=== PATIENT | male | born 1960 | race Caucasian/White ===

== ENCOUNTER → 2016-08-22 | Outpatient (CLI) | payer BC ==
[~2016-08-22] MED LIST: AMOX-355 PO; CATHETER FLUSH 10 ML SYR IV PRN; HYDR-3812 PO; IOHEXOL 350 MG/ML 100 ML (OMNIPAQUE 350) VIAL IV ONE; NS 100 ML (IVPB) BAG IV ONE; PRD20T PO
--- NOTE | 2016-08-22 10:00 | Diagnostic Imaging Report ---
PROCEDURE: CT chest with contrast only. TECHNIQUE: Multiple contiguous axial images were obtained through the chest after administration of intravenous contrast. INDICATION: Lung nodules seen on chest x-ray from 08/17/2016. 75 mL of Omnipaque 350 is administered intravenously. FINDINGS: There is an irregular bilobed nodule in the right upper lobe measuring 2.1 x 1.3 cm in maximum axial dimension and is contiguous with an adjacent superior nodule with the contiguous craniocaudal measurement at 3.4 cm. There is surrounding spiculation. There is background advanced emphysema changes. There are some calcified granulomas in the right middle lobe and in the left lower lobe with no other suspicious nodules or masses. There is a nonspecific 9-mm precarinal lymph node. No significant hilar lymphadenopathy is seen. The mediastinum demonstrates no mass or lymphadenopathy. There is no axillary lymphadenopathy noted. The thoracic aorta is normal in caliber. The heart size is normal. The osseous structures appear grossly unremarkable. Sections of the upper abdomen demonstrate suggestion of anatomic variation in the lower pole of the left kidney. The kidneys are incompletely visualized on this exam. There is no adrenal nodule. IMPRESSION: 1. Irregular right upper lobe lung mass concerning for lung cancer. Evaluation with PET/CT is suggested. 2. Nonspecific 9-mm precarinal lymph node. 3. Advanced emphysema. Simran Cox NP, was called and informed about the findings by Dr. Ashraf at time of dictation. Dictated by: Dictated on workstation # [id number]
== END ==
LOC: RAD 09:09
PROVIDERS: ATTEND Nurse Practitioner Family
DX: R91.8 Other nonspecific abnormal finding of lung field (principal); J43.9 Emphysema, unspecified
CPT/HCPCS: 71260

== ENCOUNTER 2016-08-25 06:22 | Day surgery (SDC) | payer BC ==
[~2016-08-25] VITALS: Ht 167.6 cm; Wt 63.7 kg
--- NOTE | 2016-08-25 06:47 | Progress Note-Pre Operative ---
Pre-Operative Progress Note H&P Reviewed The H&P was reviewed, patient examined and no changes noted. Date H&P Reviewed: Aug 25, 2016 Time H&P Reviewed: 06:40 Pre-Operative Diagnosis: Bilat Chronic Sinusitis with Polyps, Deviated SEptum, Bilat Hyper of INf Tu KATIE STEINER MD Aug 25, 2016 6:46 am
[2016-08-25] MEDS ORDERED: NORMAL SALINE (BAXTER MINI) 50 ML IV ONE (07:02)
[2016-08-25] MEDS ORDERED: HYDROCORTISONE 100 MG/2 ML (Solu-CORTEF) VIAL ONE (07:02)
[2016-08-25] MEDS ORDERED: AMPICILL/SULB 1.5 GM VIAL (UNASYN) ONE (07:02)
[2016-08-25] MEDS ORDERED: HYDROCORTISONE 100 MG/2 ML (Solu-CORTEF) VIAL IV ONE (07:15)
[2016-08-25] MEDS ORDERED: AMPICILLIN/SULBACTAM 1.5 GM/NS 50 ML IVPB IV ONE ×2 (07:15)
[2016-08-25] MEDS: LACTATED RINGERS 1,000 ML IV PRN ×2 (07:24→10:00)
[2016-08-25] MEDS ORDERED: BSS 15 ML ONE (07:42)
[2016-08-25] MEDS ORDERED: PHENYLEPHRINE 0.5% NASAL SPR (NEO-SYNEPHRINE) REG ONE ×2 (07:42→10:40)
[2016-08-25] MEDS ORDERED: LIDOCAINE/EPI 1%-1:100,000 (XYLOCAINE) 20ML ONE ×2 (07:42→10:02)
[2016-08-25] MEDS ORDERED: COCAINE HCL 4% 2 ML SYR ONE (07:42)
[2016-08-25 07:52] VITALS: BP 162/92
[2016-08-25] MEDS ORDERED: SEVOFLURANE (ULTANE) 15 ML INHAL SOLN ONE ×4 (08:41→10:31)
[2016-08-25] MEDS ORDERED: LIDOCAINE PF 2% 10 ML (XYLOCAINE) AMP ONE (08:41)
[2016-08-25] MEDS ORDERED: ONDANSETRON 4 MG/2 ML (SDV) Z0FRAN ONE (08:41)
[2016-08-25] MEDS ORDERED: proPOfol 200 MG/20 ML (DIPRIVAN) VIAL IV ONE (08:41)
[2016-08-25] MEDS ORDERED: ROCURONIUM 50 MG/5 ML (ZEMURON) VIAL IV ONE (08:41)
[2016-08-25] MEDS ORDERED: DEXAMETHASONE PF 10 MG/ML (DECADRON) VIAL ONE (08:41)
[2016-08-25] MEDS ORDERED: LACTATED RINGERS 1,000 ML IV ONE ×2 (08:41→09:55)
[2016-08-25] MEDS ORDERED: MIDAZOLAM 2 MG/2 ML (VERSED) VIAL ONE (08:42)
[2016-08-25] MEDS ORDERED: fentaNYL INJECTION 250 MCG/5 ML AMP ONE (08:42)
[2016-08-25] MEDS ORDERED: ATROPINE INJ 0.4 MG/ML SDV ONE (09:18)
[2016-08-25] MEDS ORDERED: NEOSTIGMINE (BLOXIVERZ ) 1 MG/1ML 10 ML VIAL ONE (10:34)
[2016-08-25] MEDS ORDERED: GLYCOPYRROLATE 0.2 MG/ML (ROBINUL) 2 ML VIAL ONE (10:34)
[2016-08-25] MEDS ORDERED: morphine INJ 10 MG/ML 1ML (SYR OR VIAL) ONE (10:39)
[2016-08-25] MEDS ORDERED: COCAINE HCL 4% 2 ML SYR TOP ONE (10:40)
[2016-08-25] MEDS ORDERED: LIDOCAINE/EPI 1%-1:100,000 (XYLOCAINE) 20ML INJ ONE (10:40)
[2016-08-25] MEDS ORDERED: BSS 15 ML IO ONE (10:40)
[2016-08-25] MEDS ORDERED: D5 1/2 NS W/KCL 20 MEQ/L 1,000 ML IV SCH (10:44)
--- NOTE | 2016-08-25 10:44 | Progress Note-Post Operative ---
Post-Operative Progess Note Pre-Operative Diagnosis BILAT CHRONIC SINUSITIS WITH POLYPS, DEVIATED SEPTUM, BILAT HYPER OF INF TU Post-Operative Diagnosis same Post-Op Procedure Note Date of Procedure: Aug 25, 2016 Name of Procedure: Bilat ESs, Bilat REdu of the inf Turbs Anesthesia Type get Estimated blood loss (mL): 150cc Packing: DNP bilat Specimen(s) collected Bilat Polyps and sinus disease KATIE STEINER MD Aug 25, 2016 10:44 am
[2016-08-25] MEDS ORDERED: predniSONE 20 MG TAB PO ONE (10:45)
[2016-08-25] MEDS ORDERED: PROMETHAZINE INJ 25 MG/ML (PHENERGAN) AMP IVP PRN (10:45)
[2016-08-25] MEDS ORDERED: HYDROcodone/APAP 5 MG/325 MG (LORTAB) TAB PO PRN (10:45)
[2016-08-25] MEDS ORDERED: ACETAMINOPHEN 325 MG TABLET/CAPLET (TYLENOL) PO PRN (10:45)
[2016-08-25] MEDS ORDERED: ONDANSETRON 4 MG/2 ML (SDV) Z0FRAN IVP PRN (11:00)
[2016-08-25] MEDS ORDERED: morphine INJ 10 MG/ML 1ML (SYR OR VIAL) IVP PRN (11:00)
[2016-08-25] MEDS ORDERED: HYDROmorphone (DILAUDID) 2 MG/ML VIAL IVP PRN (11:00)
[2016-08-25] MEDS ORDERED: MEPERIDINE (DEMEROL) INJ 50 MG/ML IVP PRN (11:00)
[2016-08-25 11:40] VITALS: BP 165/91
[2016-08-25 12:10] VITALS: BP 162/91
[2016-08-25] MEDS ORDERED: AMOX-355 PO ×2 (12:39)
[2016-08-25] MEDS ORDERED: HYDR-3812 PO ×2 (12:39)
[2016-08-25] MEDS ORDERED: PRD20T PO ×2 (12:39)
[2016-08-25 12:40] VITALS: BP 159/92
== END 2016-08-25 13:10 | disposition home or self-care (01) ==
LOC: SDC 06:22
PROVIDERS: ATTEND Otolaryngology Otolaryngology/Facial Plastic Surgery
DX: J32.2 Chronic ethmoidal sinusitis (principal); J32.0 Chronic maxillary sinusitis; J32.1 Chronic frontal sinusitis; J32.3 Chronic sphenoidal sinusitis; J33.9 Nasal polyp, unspecified

== ENCOUNTER → 2016-08-29 | Outpatient (CLI) | payer BC ==
[~2016-08-29] MED LIST changes: -CATHETER FLUSH 10 ML SYR IV PRN; -IOHEXOL 350 MG/ML 100 ML (OMNIPAQUE 350) VIAL IV ONE; -NS 100 ML (IVPB) BAG IV ONE
--- OUTSIDE RECORDS SUMMARY | 2016-08-29 08:21 | XMS REPORT | Continuity of Care Document ---
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 Medications Current Home Medications Medication Dose Units Route Directions Days/Qty Instructions Start Date Amoxicillin/Potassium Clav 1 Each 1 Tab Oral Twice A Day 7 Days Prednisone 20 Mg 20 Mg Oral As Directed 12 Take 3 tabs(60mg)daily x2 days , then take 2 tabs(40mg)daily x2 days, then take 1 tab(20mg)daily x2 days, then off. 08/25/16 Hydrocodone/Acetaminophen 1 Each 1-2 Tab Oral Every 4HRS as needed for Pain 40 08/25/16 Social History Social History Problem Response Recorded Date/Time Alcohol Use Denies Use 08/25/2016 8:05am Recreational Drug Use No 08/25/2016 8:05am Recent Foreign Travel No 08/25/2016 7:36am Recent Infectious Disease Exposure No 08/25/2016 7:36am Sexually Transmitted Disease No 08/25/2016 8:05am HIV/AIDS No 08/25/2016 8:05am Smoking Status Current Everyday Smoker 08/25/2016 8:05am Type Used Cigarettes 08/25/2016 2:40pm Recent Hopitalizations No 08/25/2016 8:05am Sexually Transmitted Disease No 08/25/2016 8:05am Query Response Start Date Stop Date Smoking Status Current Everyday Smoker Hospital Discharge Instructions No hospital discharge instructions. Plan of Care Discharge Date 08/25/16 1:10pm Instructions/Education Provided ANESTHESIA INSTRUCTIONS POSTOP DR. STEINER-SINUS SURGERY DR. STEINER-NASAL IRRIGATION Prescriptions See Medication Section Functional Status No functional status results. Allergies, Adverse Reactions, Alerts No known allergies. Immunizations No immunization records. Vital Signs Acute Vital Signs Vital Response Date/Time Temperature (Fahrenheit) 98.4 degrees F (97.6 - 99.5) 08/25/2016 12:40pm Temperature (Calculated Celsius) 36.93277 degrees C (36.4 - 37.5) 08/25/2016 12:40pm Temperature Source Tympanic 08/25/2016 12:40pm Pulse Rate (adult) 94 bpm (60 - 90) 08/25/2016 12:40pm Respiratory Rate 16 bpm (12 - 24) 08/25/2016 12:40pm O2 Sat by Pulse Oximetry 96 % (88 - 100) 08/25/2016 12:40pm Blood Pressure 159/92 mm Hg 08/25/2016 12:40pm Blood Pressure Mean 115 mm Hg 08/25/2016 7:52am Pain Numeric Pain Scale 0-No Pain 08/25/2016 1:10pm Pain Intensity 0 08/25/2016 12:40pm Height (Feet) 5 feet 08/25/2016 7:36am Height (Inches) 6.00 inches 08/25/2016 7:36am Height (Calculated Centimeters) 167.157595 cm 08/25/2016 7:36am Weight (Pounds) 140 pounds 08/25/2016 7:36am Weight (Ounces) 6.0 oz 08/25/2016 7:36am Weight (Calculated Grams) 07390.03 gm 08/25/2016 7:36am Weight (Calculated Kilograms) 63.054447 kilograms 08/25/2016 7:36am Calculated BMI 22.7 08/25/2016 7:36am Results Pending Laboratory Results Test Name Collection Date/Time Pending Microbiology Results Procedure Source Collection Date/Time Procedures Procedure Status Date Provider(s) Endoscopic sinus surgery Completed 08/25/16 KATIE STEINER MD Tracing only of electrocardiogram Completed 08/17/16 KATIE STEINER MD Encounters Encounter Location Arrival/Admit Date Discharge/Depart Date Attending Provider Departed [facility] 08/25/16 6:22am 1:10pm KATIE STEINER MD Registered Clinic [facility] 08/22/16 9:09am HENRIK AMAYA Registered Clinic [facility] 08/17/16 12:52pm KATIE STEINER MD Registered Clinic [facility] 08/07/16 9:05am KATIE STEINER MD
--- NOTE | 2016-08-29 13:03 | Diagnostic Imaging Report ---
EXAMINATION: PET-CT TECHNIQUE: Serum glucose level at the time of the study is: 98 mg/dL. 12.3 mCi of FDG was administered intravenously followed by obtaining PET images with corresponding noncontrast CT scan images. The CT scan was performed for anatomic correlation and attenuation correction and was not performed according to the diagnostic protocol of the areas covered. The scan was performed from the head to mid thighs. INDICATION: Lung nodule. FINDINGS: FDG uptake in the brain appear symmetric. Only symmetric mild activity in the pharynx and along the anterior paravertebral muscles in the neck are noted with mild vocal cords activity without associated suspicious lesion on CT scan noted. These areas of FDG uptake are likely inflammatory or physiologic. IN THE CHEST: The irregular nodule in the right upper lobe is not associated with any significant FDG uptake suggestive of scarring. No hypermetabolic enlarged lymph node is seen. IN THE ABDOMEN AND PELVIS: There is incidental note of a horseshoe kidney. Urinary tract expected excretion is noted. Bowel activity is also seen in a nonfocal pattern in favor of physiologic activity with no suspicious hypermetabolic mass. IMPRESSION: 1. The right upper lobe irregular nodule seen on recent CT is not associated with increased FDG uptake suggestive of scarring. Followup low dose unenhanced CT scan of the chest in three months to document stability is recommended. 2. Incidental note of congenital horseshoe kidney. Dictated by: Dictated on workstation # [id number]
== END ==
LOC: RAD 08:18
PROVIDERS: ATTEND Nurse Practitioner Family
DX: R91.1 Solitary pulmonary nodule (principal); Q63.1 Lobulated, fused and horseshoe kidney